=== PATIENT | male | born 1955 | race Two or more races ===

== ENCOUNTER 2018-11-19 23:40 | Emergency (ER) | payer MEDICAID, OTHER ==
[~2018-11-19] VITALS: Ht 167.6 cm; Wt 83.9 kg
[2018-11-19 23:58] VITALS: BP 140/85
== END 2018-11-20 02:49 | disposition home or self-care (01) ==
LOC: ER 23:47
DX: S01.21XA Laceration without foreign body of nose, initial encounter (principal); W20.8XXA Other cause of strike by thrown, projected or falling object, initial encounter; Y93.89 Activity, other specified; Y92.812 Truck as the place of occurrence of the external cause; Y99.8 Other external cause status
CPT/HCPCS: 12054

== ENCOUNTER 2022-05-20 02:47 | Emergency (ER) | payer OTHER, MEDICAID ==
[~2022-05-20] VITALS: Ht 167.6 cm; Wt 77.0 kg
[2022-05-20 03:11] VITALS: BP 111/73
[2022-05-20] MEDS ORDERED: FAMOTIDINE 20 MG TAB PO ONE (04:15)
[2022-05-20] MEDS ORDERED: FAMO20TA10 PO (04:20)
== END 2022-05-20 04:52 | disposition home or self-care (01) ==
LOC: ER 02:47
DX: K29.70 Gastritis, unspecified, without bleeding (principal); K21.9 Gastro-esophageal reflux disease without esophagitis; E11.9 Type 2 diabetes mellitus without complications

== ENCOUNTER 2023-08-13 04:30 | Emergency (ER) | payer OTHER, MEDICAID ==
[~2023-08-13] VITALS: Ht 167.6 cm; Wt 78.6 kg
[~2023-08-13 04:30] MED LIST: FAMO20TA10 PO
[2023-08-13] MEDS ORDERED: OFL50TS OT (04:45)
[2023-08-13] MEDS ORDERED: AUG875T PO (04:45)
[2023-08-13] MEDS ORDERED: HYDR-4902 PO (04:54)
[2023-08-13 04:58] VITALS: BP 159/94; PULSE 60; RESP 16; O2SAT 98
[2023-08-13] MEDS: LIDOCAINE 1% HCL (LOCAL ANESTH.) INJ 20ML MDV ONE (05:00)
[2023-08-13] MEDS: HYDROcodone-ACET 5/325MG TAB PO ONE (05:11)
[2023-08-13] MEDS: cefTRIAXone SOD 1,000 MG VL IM ONE (05:12)
== END 2023-08-13 05:36 | disposition home or self-care (01) ==
LOC: ER 04:30
DX: K04.7 Periapical abscess without sinus (principal); H66.92 Otitis media, unspecified, left ear; E11.9 Type 2 diabetes mellitus without complications; K21.9 Gastro-esophageal reflux disease without esophagitis; Z79.2 Long term (current) use of antibiotics; Z79.899 Other long term (current) drug therapy
CPT/HCPCS: 96372; 99283; J0696; J2001